=== PATIENT | female | born 1960 | race Two or more races ===

== ENCOUNTER 2018-06-26 06:05 | Day surgery (SDC) | payer OTHER | END 2018-06-26 10:57 | disposition home or self-care (01) | LOC: AMB-ENDOS 06:05 → CIR.AMB 15:00 | DX: K57.32 Diverticulitis of large intestine without perforation or abscess without bleeding (principal) ==

== ENCOUNTER 2019-10-24 19:23 | Emergency (ER) | payer OTHER ==
[~2019-10-24] VITALS: Ht 157.5 cm; Wt 80.7 kg
[2019-10-24] MEDS ORDERED: METFORMIN HCL500 M3 (19:35)
[2019-10-24] MEDS ORDERED: LOTREL 10-20 M1 EACH (19:35)
[2019-10-24] MEDS ORDERED: SIMVASTATIN20 MG (19:35)
[2019-10-25] MEDS ORDERED: KETO10TA2 PO (00:56)
== END 2019-10-25 01:03 | disposition home or self-care (01) ==
LOC: ER 19:23
DX: S62.316A Displaced fracture of base of fifth metacarpal bone, right hand, initial encounter for closed fracture (principal); W18.09XA Striking against other object with subsequent fall, initial encounter; Y93.89 Activity, other specified; Y92.018 Other place in single-family (private) house as the place of occurrence of the external cause; Y99.8 Other external cause status